=== PATIENT | female | born 1955 | race Caucasian/White ===

== ENCOUNTER 2021-08-30 17:05 | Emergency (ER) | payer MEDICARE, MEDICAID, SELFPAY ==
[2021-08-30] VITALS (27 sets, daily range): BP systolic 143–190; BP diastolic 81–96; PULSE 91–108; RESP 11–40; TEMP 36.8; O2SAT 91–100; BMI 29.7
--- NOTE | 2021-08-30 17:20 | DI.RAD.S_ITS ---
PROCEDURE: XR ELBOW RT 2V INDICATIONS: Fall TECHNIQUE: 3 views of the elbow were acquired. COMPARISON: None. FINDINGS: Bones: Posterolateral complete elbow dislocation with distraction noted. No evidence of grossly displaced fracture. No radiopaque foreign bodies. Generalized decreased osseous mineralization. Soft tissues: No elbow joint effusion. No suspicious soft tissue calcifications. IMPRESSION: Complete elbow dislocation with distraction and rotation Approved by: Kyree Box M.D. on 08/30/2021 at 17:25
--- NOTE | 2021-08-30 17:30 | ED_ITS ---
HPI - Fall <Ricci Arenas PA-C - Last Filed: 08/30/21 20:02> General Chief Complaint: Fall Stated Complaint: GLF Time Seen by Provider: 08/30/21 17:21 Source: patient Mode of arrival: EMS History of Present Illness HPI Narrative: Patient is a 66-year-old female who presents to the emergency department via EMS for evaluation of right elbow pain. Patient states that she was at the gas station when she tripped over a step on her way in to pay for her gasoline causing her to fall on her outstretched right hand. She states that she felt immediate sharp pain in her right elbow and notes that she does have a history of right elbow dislocation approximately 15 years ago. Patient states that EMS made note of a possible deformity of her right upper extremity when in a arrived on scene. She denies hitting her head or losing consciousness as a result of the fall. She denies fever, chills, chest pain, cough, shortness of breath, nausea, vomiting, diarrhea, constipation, abdominal pain, dysuria, hematuria, numbness and tingling in the upper extremities, or any other concerning symptoms. No further concerns are voiced at this time. Related Data Allergies Allergy/AdvReac Type Severity Reaction Status Date / Time povidone-iodine AdvReac Severe Rash Verified 08/30/21 17:15 [From Betadine] Review of Systems <Ricci Arenas PA-C - Last Filed: 08/30/21 20:02> Constitutional Constitutional: Denies chills, Denies fatigue, Denies fever(s), Denies frequent falls, Denies lethargy and Denies weakness ENT Ears, Nose, Mouth, and Throat: Denies neck pain Cardiovascular Cardiovascular: Denies chest pain, Denies irregular heart rhythm, Denies lightheadedness, Denies palpitations, Denies dyspnea, Denies dyspnea on exertion and Denies orthopnea Respiratory Respiratory: Denies dyspnea and Denies dyspnea on exertion Gastrointestinal Gastrointestinal: Denies abdominal pain, Denies change in bowel habits, Denies diarrhea, Denies nausea and Denies vomiting Genitourinary Genitourinary: Denies hematuria, Denies flank pain, Denies urinary incontinence and Denies urinary urgency Musculoskeletal Musculoskeletal: Denies back pain, Reports deformity (Right elbow), Reports arthralgias (Right elbow), Denies muscle weakness, Denies neck pain, Denies numbness and Denies tingling Integumentary/Breasts Skin/Breast: Denies pruritus, Denies erythema, Denies rash and Denies wounds Neurologic Neurologic: Denies frequent falls, Denies numbness, Denies tingling and Denies weakness Endocrine Endocrine: Denies fatigue and Denies palpitations Patient History <Ricci Arenas PA-C - Last Filed: 08/30/21 20:02> Social History Smoking Status: Former smoker Smoking Status: Former smoker alcohol intake frequency: 3 or more drinks per day Alcohol type: beer Substance Use Type: marijuana Exam <Ricci Arenas PA-C - Last Filed: 08/30/21 20:02> Narrative Exam Narrative: GENERAL: 66 year old patient appears stated age. Well-developed patient, in no acute distress. HEAD: Atraumatic. Normocephalic. EYES: Pupils equal round and reactive. Extraocular motions intact. No scleral icterus. No injection or drainage. ENT: Nose without bleeding, purulent drainage. Throat without erythema, tonsillar hypertrophy or exudate. Airway patent. NECK: Trachea midline. Non tender CARDIOVASCULAR: Regular rate and rhythm without murmurs, gallops, or rubs. RESPIRATORY: Clear to auscultation. Breath sounds equal bilaterally. No wheezes, rales, or rhonchi. GASTROINTESTINAL: Abdomen soft, non-tender, nondistended. EXTREMITIES: No edema. Right upper extremity an Aircast. Patient is able to move fingers of the right upper extremity without difficulty. Patient reports good sensation to light touch throughout the right upper extremity. BACK: Nontender without deformity or crepitance. No flank tenderness. NEURO: AOx3. SKIN: No rash or erythema of visible areas Initial Vital Signs Initial Vital Signs: Vital Signs Temperature 98.3 F 08/30/21 17:15 Pulse Rate 108 H 08/30/21 17:15 Respiratory Rate 18 08/30/21 17:15 Blood Pressure 143/84 H 08/30/21 17:15 Pulse Oximetry 95 08/30/21 17:15 Oxygen Delivery Method 08/30/21 17:15 <Zeenat Morales DO - Last Filed: 08/31/21 04:51> Initial Vital Signs Initial Vital Signs: Vital Signs Temperature 98.3 F 08/30/21 17:15 Pulse Rate 108 H 08/30/21 17:15 Respiratory Rate 18 08/30/21 17:15 Blood Pressure 143/84 H 08/30/21 17:15 Pulse Oximetry 95 08/30/21 17:15 Oxygen Delivery Method 08/30/21 17:15 <Zeenat Morales DO - Last Filed: 08/31/21 04:51> Orthopedic Joint Reduction Joint #1: Time Out Performed: Yes Side: right Joint Reduction Location: elbow Analgesia: procedural sedation Technique used: traction/counter-traction Post-reduction neuro exam: intact Post-reduction vascular: intact Post Reduction X-Ray Obtained: Yes Post Reduction X-Ray Results: reduced Splint Applied: Yes Orthopedic Splinting/Casting Injury #1: Side: right Upper Extremity Injury Location: elbow Upper Extremity Immobilizer: sugar tong splint Post splinting neuro exam: intact Post splinting vascular exam: intact Procedural Sedation Indication: fracture/dislocation reduction ASA Class: II Mallampati Airway Classification: Class II Preparation: ekg monitor tech applied, pulse oximeter, capnometry used, supplemental O2 applied, suction/airway equipment at bedside and IV secured IV Etomidate dose (mg): 7.3 Intraservice time/total sedation time (min): 11 ED Sedation Level: Moderate (Concious) Patient Tolerated Procedure: Well Complications: none Course <Ricci Arenas PA-C - Last Filed: 08/30/21 20:02> Course Course Narrative: X-ray of right elbow obtained. Complete elbow dislocation with destruction rotation noted on x-ray. Dr. Morales performed reduction. Orders Ordered: Discontinued Medications Hydrocodone Bitart/Acetaminophen (Hydrocodone/Acet 5/325 Prepack) 1 bottle MISC SEEINSTR ONE Stop: 08/30/21 20:12 Last Admin: 08/30/21 20:28 Dose: 1 bottle Documented By: RHONDA Etomidate (Etomidate 2 Mg/Ml 10 Ml Vial) 7.3 mg 0.1 mg/kg (7.3 mg) IV NOW ONE Stop: 08/30/21 19:01 Last Admin: 08/30/21 19:15 Dose: 7.3 mg Documented By: RHONDA Vital Signs Vital signs: Vital Signs - 8 hr 08/30/21 17:15 08/30/21 19:24 08/30/21 18:08 Temperature 98.3 F Pulse Rate 108 H 105 H 101 H Respiratory Rate 18 20 Blood Pressure 143/84 H Pulse Oximetry 95 92 Oxygen Delivery Method Room Air 08/30/21 18:10 08/30/21 18:15 08/30/21 18:20 Temperature Pulse Rate 99 H 97 H 97 H Respiratory Rate Blood Pressure Pulse Oximetry 93 93 94 Oxygen Delivery Method 08/30/21 18:25 08/30/21 18:30 08/30/21 18:35 Temperature Pulse Rate 98 H 97 H 97 H Respiratory Rate Blood Pressure Pulse Oximetry 95 91 91 Oxygen Delivery Method 08/30/21 18:40 08/30/21 18:45 08/30/21 18:50 Temperature Pulse Rate 98 H 98 H 97 H Respiratory Rate Blood Pressure Pulse Oximetry 93 94 94 Oxygen Delivery Method 08/30/21 18:55 08/30/21 19:00 08/30/21 19:05 Temperature Pulse Rate 97 H 99 H 100 H Respiratory Rate Blood Pressure Pulse Oximetry 96 95 95 Oxygen Delivery Method 08/30/21 19:10 08/30/21 19:15 08/30/21 19:16 Temperature Pulse Rate 94 H 97 H Respiratory Rate 17 Blood Pressure 175/81 H Pulse Oximetry 96 100 Oxygen Delivery Method 08/30/21 19:16 08/30/21 19:20 08/30/21 19:25 Temperature Pulse Rate 93 H 97 H Respiratory Rate 15 40 H Blood Pressure 157/94 H Pulse Oximetry 100 100 Oxygen Delivery Method 08/30/21 19:25 08/30/21 19:30 08/30/21 19:31 Temperature Pulse Rate 93 H 95 H Respiratory Rate 21 31 H Blood Pressure 157/91 H Pulse Oximetry 98 98 Oxygen Delivery Method 08/30/21 19:31 08/30/21 19:35 08/30/21 19:35 Temperature Pulse Rate 94 H 93 H Respiratory Rate 28 H 19 Blood Pressure 169/96 H Pulse Oximetry 98 100 Oxygen Delivery Method <Zeenat Morales DO - Last Filed: 08/31/21 04:51> Orders Ordered: Discontinued Medications Hydrocodone Bitart/Acetaminophen (Hydrocodone/Acet 5/325 Prepack) 1 bottle MISC SEEINSTR ONE Stop: 08/30/21 20:12 Last Admin: 08/30/21 20:28 Dose: 1 bottle Documented By: RHONDA Etomidate (Etomidate 2 Mg/Ml 10 Ml Vial) 7.3 mg 0.1 mg/kg (7.3 mg) IV NOW ONE Stop: 08/30/21 19:01 Last Admin: 08/30/21 19:15 Dose: 7.3 mg Documented By: RHONDA Vital Signs Vital signs: Vital Signs - 8 hr 08/30/21 17:15 08/30/21 19:24 08/30/21 18:08 Temperature 98.3 F Pulse Rate 108 H 105 H 101 H Respiratory Rate 18 20 Blood Pressure 143/84 H Pulse Oximetry 95 92 Oxygen Delivery Method Room Air 08/30/21 18:10 08/30/21 18:15 08/30/21 18:20 Temperature Pulse Rate 99 H 97 H 97 H Respiratory Rate Blood Pressure Pulse Oximetry 93 93 94 Oxygen Delivery Method 08/30/21 18:25 08/30/21 18:30 08/30/21 18:35 Temperature Pulse Rate 98 H 97 H 97 H Respiratory Rate Blood Pressure Pulse Oximetry 95 91 91 Oxygen Delivery Method 08/30/21 18:40 08/30/21 18:45 08/30/21 18:50 Temperature Pulse Rate 98 H 98 H 97 H Respiratory Rate Blood Pressure Pulse Oximetry 93 94 94 Oxygen Delivery Method 08/30/21 18:55 08/30/21 19:00 08/30/21 19:05 Temperature Pulse Rate 97 H 99 H 100 H Respiratory Rate Blood Pressure Pulse Oximetry 96 95 95 Oxygen Delivery Method 08/30/21 19:10 08/30/21 19:15 08/30/21 19:16 Temperature Pulse Rate 94 H 97 H Respiratory Rate 17 Blood Pressure 175/81 H Pulse Oximetry 96 100 Oxygen Delivery Method 08/30/21 19:16 08/30/21 19:20 08/30/21 19:25 Temperature Pulse Rate 93 H 97 H Respiratory Rate 15 40 H Blood Pressure 157/94 H Pulse Oximetry 100 100 Oxygen Delivery Method 08/30/21 19:25 08/30/21 19:30 08/30/21 19:31 Temperature Pulse Rate 93 H 95 H Respiratory Rate 21 31 H Blood Pressure 157/91 H Pulse Oximetry 98 98 Oxygen Delivery Method 08/30/21 19:31 08/30/21 19:35 08/30/21 19:35 Temperature Pulse Rate 94 H 93 H Respiratory Rate 28 H 19 Blood Pressure 169/96 H Pulse Oximetry 98 100 Oxygen Delivery Method MDM - Fall <Ricci Arenas PA-C - Last Filed: 08/30/21 20:02> Lab Data Labs: Lab Results 08/30/21 Range/Units 18:40 SARS-CoV-2 (PCR) Negative (Negative) Point of Care Testing Test Results Not applicable Imaging Data Extremity x-ray #1: Radiologist's Impression: PROCEDURE:? XR ELBOW RT 2V ? INDICATIONS:? Fall ? TECHNIQUE:? 3 views of the elbow were acquired.? ? COMPARISON:? None. ? FINDINGS:? ? Bones:? Posterolateral complete elbow dislocation with distraction noted.? No evidence of grossly displaced fracture.? No radiopaque foreign bodies.? Generalized decreased osseous mineralization. ? Soft tissues:? No elbow joint effusion.? No suspicious soft tissue calcifications.? ? ? IMPRESSION:? Complete elbow dislocation with distraction and rotation ? ? ? Approved by: Kyree Box M.D. on 08/30/2021 at 17:25 MDM Narrative Medical decision making narrative: Differential diagnosis to consider but not limited to fracture versus dislocation versus sprain versus strain. X-ray imaging obtained today did show signs of a complete dislocation which was reduced in the emergency department. X-ray imaging obtained after reduction tissue signs of successful reduction. Patient was placed splint with instructions provided. <Zeenat Morales DO - Last Filed: 08/31/21 04:51> Lab Data Labs: Lab Results 08/30/21 Range/Units 18:40 SARS-CoV-2 (PCR) Negative (Negative) Point of Care Testing Test Results Not applicable Imaging Data Extremity x-ray #2: Radiologist's Impression: Signed Patient: Balbina Coreas MR#: [id number] : 1955 Acct:[id number] Age/Sex: 66 / F Date of Service: 08/30/21 Loc: ED Accession Number: [id number] ?? Procedure: XR elbow RT 2V Ordering Provider: Zeenat Morales D.O. PROCEDURE:? XR ELBOW RT 2V ? INDICATIONS:? post reduction ? TECHNIQUE:? 3 views of the elbow were acquired.? ? COMPARISON:? [facility], , XR ELBOW RT 2V, 08/30/2021, 17:31. ? FINDINGS:? ? Bones:? No fractures or dislocations.? No suspicious bony lesions.? ? Soft tissues:? No elbow joint effusion.? No suspicious soft tissue calcifications.? ? ? IMPRESSION:? Successful reduction of elbow joint dislocation, without fracture identified.? Please note that splint material is superimposed on the area of the elbow and therefore fine bone detail is not well visualized.? A nondisplaced fracture cannot be entirely excluded as a result. ? ? Dictated by: Adi Small M.D. on 08/30/2021 at 20:02 ? ? Approved by: Adi Small M.D. on 08/30/2021 at 20:04 ? MDM Narrative Medical decision making narrative: Differential diagnosis to consider but not limited to fracture versus dislocation versus sprain versus strain. X-ray imaging obtained today did show signs of a complete dislocation which was reduced in the emergency department. X-ray imaging obtained after reduction tissue signs of successful reduction. Patient was placed splint with instructions provided. Kristi saw and evaluated patient myself. Neurovascularly intact. X-ray does show posterior dislocation of elbow. It was easily reduced and splinted. No sign of fracture on post reduction film. Dr. Adams orthopedics consulted. Agrees with sugar-tong splint and early outpatient follow-up. Discharge Plan Departure Patient Disposition: Home Clinical Impression: Dislocation closed, elbow Instructions: DI for Elbow Dislocation Activity Restrictions/Additional Instructions: *You have been diagnosed with right elbow dislocation *What to do: Please keep splint on until seen by orthopedics. No fracture seen at this time. Use sling as needed *Continue to take medications as directed [place] 1 tablet every 6 hours if needed for severe pain Ibuprofen 600 mg every 6 if needed for [id number] pain *Follow up with your primary care provider in 2-3 days or call [phone] Please call orthopedic on Wednesday to schedule follow-up appointment *Return to ER if you should have increase con effusion, increased pain, numbness tingling weakness or any new, worsening or concerning symptoms CONTROLLED SUBSTANCE DISCHARGE (Narcotoic/benzodiazepine/Flexeril/Phenergan) 1. You have been prescribed narcotic medications, it does have acetaminophen/Tylenol/paracetamol in it, DO NOT TAKE MORE THAN 4,00mg in 24 hours of Tylenol. TRAMADOL DOES NOT CONTAIN TYLENOL 2. Please understand that we cannot provide further refills of narcotics, benzodiazepines or controlled substances through the ED and her pain management will need to be through your provider. 3. While on these medications you cannot drive or operate heavy machinery. 4. You cannot sign legal documents or perform any duties such as this. 5. As long as you're taking opiate pain medications he should also be taking a stool softener such as Colace, Dulcolax, MiraLAX or prune juice, to help avoid constipation. Referrals: Carla Adams MD [Physician] - Visit Report Forms: Patient Portal/API
[2021-08-30 19:14] LABS: COVID19 -Nasal RAPID Negative (Negative)
[2021-08-30] MEDS: ETOMIDATE 2 MG/ML 10 ML VIAL 7.3 MG IV (19:15)
--- NOTE | 2021-08-30 19:22 | DI.RAD.S_ITS ---
PROCEDURE: XR ELBOW RT 2V INDICATIONS: post reduction TECHNIQUE: 3 views of the elbow were acquired. COMPARISON: [facility], CR, XR ELBOW RT 2V, 08/30/2021, 17:31. FINDINGS: Bones: No fractures or dislocations. No suspicious bony lesions. Soft tissues: No elbow joint effusion. No suspicious soft tissue calcifications. IMPRESSION: Successful reduction of elbow joint dislocation, without fracture identified. Please note that splint material is superimposed on the area of the elbow and therefore fine bone detail is not well visualized. A nondisplaced fracture cannot be entirely excluded as a result. Dictated by: Adi Small M.D. on 08/30/2021 at 20:02 Approved by: Adi Small M.D. on 08/30/2021 at 20:04
[2021-08-30] MEDS: HYDROCODONE/ACET 5/325 PREPACK 1 BOTTLE MISC (20:28)
== END 2021-08-30 20:54 | disposition home or self-care (01) ==
PROVIDERS: Physician Assistant; Emergency Provider Emergency Medicine
DX: S53.104A Unspecified dislocation of right ulnohumeral joint, initial encounter (principal); W01.0XXA Fall on same level from slipping, tripping and stumbling without subsequent striking against object, initial encounter; Z20.822 Contact with and (suspected) exposure to COVID-19
CPT/HCPCS: 24600; 73070; 87635; 99152; 99284; 99285; C9803